=== PATIENT | female | born 1960 | race Caucasian/White ===

== ENCOUNTER 2022-11-21 15:01 | Outpatient (CLI) | payer MEDICARE, BC, MEDICAID, SELFPAY ==
--- NOTE | 2022-11-21 15:18 | MR_ITS ---
WS: [id number] MRI HEAD WITH CONTRAST TECHNIQUE: Sagittal T1, T2 axial, T2 axial FLAIR, axial susceptibility weighted imaging, axial diffus ion weighted images, and coronal T2 images were obtained. Pre and post-T1 axial and post T1 coronal i mages. ADC and FSPGR images. CLINICAL INFORMATION: MULTIPLE SCLEROSIS COMPARISON: None. FINDINGS: No evidence of restricted diffusion to suggest acute ischemia. Ventricular system and basal cisterns are patent. Mild supratentorial white matter changes. No significant parenchymal volume loss. Normal posterior fossa. Normal vascular flow voids at the skull base. No extra-axial fluid collections. No evidence of mass or mass effect. Paranasal sinuses are well aerated. Mastoid air cells are well aerat ed. No hemosiderin on susceptibly weighted images. No enhancing cranial lesions. Normal posterior nasopharynx. Normal parapharyngeal fat. Normal optic chiasm and pituitary infundibul um. Temporal lobes and hippocampal formations are normal in appearance. No abnormal gadolinium enhanc ement. Normal dural venous sinuses. IMPRESSION: 1. No evidence restricted diffusion to suggest acute ischemia. 2. Mild to moderate supratentorial white matter changes compatible with history of demyelinating dis ease. Some of this likely due to small vessel disease in a patient this age. 3. No abnormal gadolinium enhancement. 4. No hemosiderin on susceptibly weighted images. 5. Normal optic chiasm and pituitary infundibulum. 6. No significant parenchymal volume loss. 7. No significant atrophy of the corpus callosum.
[2022-11-21] MEDS: gadobenate dimeglumine 20 mL vial IV (16:17)
== END 2022-11-21 15:02 | disposition home or self-care (01) ==
LOC: RAD 15:12
PROVIDERS: PCP Nurse Practitioner Family; Visit Provider Nurse Practitioner Family
DX: G35 Multiple sclerosis (principal)
CPT/HCPCS: 70553; A9577

== ENCOUNTER → 2023-01-06 09:24 | Outpatient (BNVA) | payer MEDICARE, BC, MEDICAID, SELFPAY | PROVIDERS: PCP Nurse Practitioner Family; Referring Provider Nurse Practitioner Family; Visit Provider Specialist | DX: G37.9 Demyelinating disease of central nervous system, unspecified (principal); M16.10 Unilateral primary osteoarthritis, unspecified hip; M79.7 Fibromyalgia; G57.12 Meralgia paresthetica, left lower limb | CPT/HCPCS: 36415; 82550; 84681; 85651; 86038; 86140; 86160; 86431; 99205 ==

== ENCOUNTER 2023-01-29 16:18 | Outpatient (CLI) | payer MEDICARE, BC, MEDICAID, SELFPAY ==
--- NOTE | 2023-01-29 16:45 | MR_ITS ---
WS: [id number] EXAMINATION: MR hip LT wo con* [id number] ORDER DATE: 01/29/2023 4:46 PM COMPARISON: None. HISTORY: M79.7 - Fibromyalgia CONTRAST: None. TECHNIQUE: Coronal STIR of the Pelvis. Coronal proton density, coronal T1, axial T2 fat sat, axial T1 , sagittal T2 fat sat, and sagittal T1 performed of the hip FINDINGS: Mild to moderate degenerative narrowing LEFT hip. Normal bone marrow signal in the femoral head and acetabulum. No evidence of avascular necrosis LEFT hip. Trace fluid and edema along the grea ter trochanter compatible with mild trochanter bursitis. This is more prominent in the RIGHT hip. No significant joint effusion. Normal visualized pubic rami. Normal bone marrow signal in the sacrum and pelvic bony structures. Prior hysterectomy. Prior hysterectomy. MR/MR hip LT wo con* [id number] IMPRESSION: 1. Trace fluid edema along the greater trochanter compatible with mild trochan teric bursitis. This is more prominent in the RIGHT hip. 2. No other suspicious findings.
--- NOTE | 2023-01-29 17:30 | MR_ITS ---
WS: [id number] EXAMINATION: MR hip RT wo con* [id number] ORDER DATE: 01/29/2023 4:46 PM COMPARISON: None. HISTORY: M79.7 - Fibromyalgia CONTRAST: None. TECHNIQUE: Coronal STIR of the Pelvis. Coronal proton density, coronal T1, axial T2 fat sat, axial T1 , sagittal T2 fat sat, and sagittal T1 performed of the hip FINDINGS: Normal bone marrow signal in the femoral head and acetabulum. Mild to moderate degenerative narrowing RIGHT hip. No significant subchondral cystic change. No evidence of avascular necrosis. Sm all amount of fluid and edema along the greater trochanter suspicious for trochanteric bursitis. No s ignificant joint effusion. Normal bone marrow signal in the sacrum and pelvic bony structures. Normal bone marrow signal in the visualized pelvic bony structures. Mild to moderate degenerative narrowing LEFT hip. Prior hysterectomy. MR/MR hip RT wo con* [id number] IMPRESSION: 1. Mild to moderate degenerative narrowing RIGHT hip. No bone marrow edema. 2. No evidence of avascular necrosis. 3. Evidence of trochanteric bursitis RIGHT hip with a small amount of fluid an d edema. 4. Prior hysterectomy.
== END 2023-01-29 16:19 | disposition home or self-care (01) ==
PROVIDERS: PCP Nurse Practitioner Family; Visit Provider Specialist
DX: M70.61 Trochanteric bursitis, right hip (principal); M70.62 Trochanteric bursitis, left hip; M79.7 Fibromyalgia; M16.10 Unilateral primary osteoarthritis, unspecified hip; G37.9 Demyelinating disease of central nervous system, unspecified
CPT/HCPCS: 73721

== ENCOUNTER → 2023-02-27 09:54 | Outpatient (BNVA) | payer MEDICARE, BC, MEDICAID, SELFPAY | PROVIDERS: PCP Nurse Practitioner Family; Referring Provider Specialist; Visit Provider Student in an Organized Health Care Education/Training Program | DX: M70.61 Trochanteric bursitis, right hip | CPT/HCPCS: 20610; 73523; 99204; J3301 ==

== ENCOUNTER 2023-03-18 06:00 | Outpatient (RCR) | payer MEDICARE, BC, MEDICAID, SELFPAY | END 2023-03-20 23:59 | disposition home or self-care (01) | LOC: MPT 06:00 | PROVIDERS: Visit Provider Student in an Organized Health Care Education/Training Program | DX: M25.551 Pain in right hip (principal); M25.552 Pain in left hip | CPT/HCPCS: 97110; 97162 ==

== ENCOUNTER 2023-03-21 06:00 | Outpatient (RCR) | payer MEDICARE, BC, MEDICAID, SELFPAY | END 2023-04-19 23:59 | disposition home or self-care (01) | LOC: MPT 06:00 | PROVIDERS: Visit Provider Student in an Organized Health Care Education/Training Program | DX: M25.551 Pain in right hip (principal); M25.552 Pain in left hip | CPT/HCPCS: 97110; 97140 ==

== ENCOUNTER → 2023-04-14 09:39 | Outpatient (BNVA) | payer MEDICARE, BC, MEDICAID, SELFPAY | PROVIDERS: PCP Nurse Practitioner Family; Visit Provider Specialist | DX: G37.9 Demyelinating disease of central nervous system, unspecified; M79.7 Fibromyalgia; M16.11 Unilateral primary osteoarthritis, right hip; F17.210 Nicotine dependence, cigarettes, uncomplicated | CPT/HCPCS: 99214 ==

== ENCOUNTER 2023-04-20 06:00 | Outpatient (RCR) | payer MEDICARE, BC, MEDICAID, SELFPAY | END 2023-05-20 23:59 | disposition home or self-care (01) | LOC: MPT 06:00 | PROVIDERS: PCP Nurse Practitioner Family; Visit Provider Student in an Organized Health Care Education/Training Program | DX: M25.552 Pain in left hip (principal); M25.551 Pain in right hip | CPT/HCPCS: 97110; 97140 ==

== ENCOUNTER 2023-05-21 06:00 | Outpatient (RCR) | payer MEDICARE, BC, MEDICAID, SELFPAY | END 2023-06-19 23:59 | disposition home or self-care (01) | LOC: MPT 06:00 | PROVIDERS: PCP Nurse Practitioner Family; Visit Provider Student in an Organized Health Care Education/Training Program | DX: M25.551 Pain in right hip (principal); M25.552 Pain in left hip | CPT/HCPCS: 97110; 97140 ==

== ENCOUNTER → 2023-06-03 09:07 | Outpatient (BNVA) | payer MEDICARE, BC, MEDICAID, SELFPAY | PROVIDERS: PCP Nurse Practitioner Family; Visit Provider Physician Assistant | DX: M70.62 Trochanteric bursitis, left hip (principal) | CPT/HCPCS: 20610; 99213; J3301; J3490 ==

== ENCOUNTER → 2023-09-11 10:08 | Outpatient (BNVA) | payer MEDICARE, BC, MEDICAID, SELFPAY | PROVIDERS: PCP Nurse Practitioner Family; Visit Provider Physician Assistant | DX: M70.62 Trochanteric bursitis, left hip (principal) | CPT/HCPCS: 20610; 99213; J1100; J2795; J3301 ==

== ENCOUNTER → 2023-12-11 10:35 | Outpatient (BNVA) | payer MEDICARE, BC, SELFPAY | PROVIDERS: PCP Nurse Practitioner Family; Visit Provider Physician Assistant | DX: M70.62 Trochanteric bursitis, left hip (principal); M16.10 Unilateral primary osteoarthritis, unspecified hip; M25.562 Pain in left knee; M70.61 Trochanteric bursitis, right hip | CPT/HCPCS: 20610; 99213; J3301; J3490 ==

== ENCOUNTER → 2024-02-04 13:02 | Outpatient (BNVA) | payer MEDICARE, BC, SELFPAY | PROVIDERS: PCP Nurse Practitioner Family; Visit Provider Physician Assistant | DX: M25.561 Pain in right knee (principal); M25.562 Pain in left knee; M17.12 Unilateral primary osteoarthritis, left knee | CPT/HCPCS: 20610; 73560; 73565; 99213; J3301 ==